=== PATIENT | female | born 1960 | race Caucasian/White ===

== ENCOUNTER → 2017-11-05 11:33 | Outpatient (CLI) | payer BC, SELFPAY ==
--- NOTE | 2017-11-05 11:55 | EKG12_ITS ---
Test Reason : PREOP Blood Pressure : / mmHG Vent. Rate : 057 BPM Atrial Rate : 057 BPM P-R Int : 164 ms QRS Dur : 088 ms QT Int : 432 ms P-R-T Axes : 039 -07 077 degrees QTc Int : 420 ms Sinus bradycardia with sinus arrhythmia Otherwise normal ECG Confirmed by GEOFF MARIE, TL ([id number]), content editor BIANCA PARRA ([id number]) on 11/07/2017 2:36:28 PM Referred By: Eric Bird Confirmed By:TL TELLEZ MD
[2017-11-05 12:10] LABS: Mean Corp Hgb Conc 32.6 g/gl (32-36); Mean Corpuscular Hgb 28.7 pg (27.0-32.0); Mean Corpuscular Volume 88.1 fL (81-99); Mean Platelet Vol. 9.2 fl (6.2-12.0); Platelet Count 254 K/mm3 (150-450); RBC Distribution Width CV 13.6 % (11.6-14.6); RBC Distribution Width SD 43.6 fl (35.1-43.9); Red Blood Count 4.88 M/mm3 (4.2-5.4); White Blood Count 9.7 K/mm3 (4.4-11.0)
[2017-11-05 12:11] LABS: Scan Indicated on CBC? Y/N NO
--- NOTE | 2017-11-05 12:25 | RAD_ITS ---
STUDY: X-RAY CHEST REASON FOR EXAM: Female, 56 years old. Preop shoulder surgery, no chest complaint. TECHNIQUE: PA and lateral views of the chest. COMPARISON: None. FINDINGS: No scarring or atelectasis in the lung bases. Hyperinflation of upper lung parenchyma. There is no demonstrated pleural abnormality. Normal size heart. Normal mediastinum and argelia. Normal visualized pulmonary arteries. Normal visualized aortic arch and descending thoracic aorta. There are diffuse degenerative changes of the visualized thoracic spine. There is degenerative osteoarthritis of the bilateral shoulders. There is no demonstrated abnormality of the visualized soft tissue structures of the upper abdomen. RAD/Chest PA and Lateral IMPRESSION: Component of COPD with scarring/atelectasis in the bases suspected. Degenerative changes. No pulmonary edema, congestive heart failure or confluent pneumonia. Electronically Signed: Debi Robledo MD at 4:02 EDT , Service support ,
[2017-11-05 12:35] LABS: Anion Gap 8 (5-15); BUN 11 mg/dL (7-18); BUN/Creat Ratio 12.1 RATIO (10-20); Calcium,Total 8.9 mg/dL (8.5-10.1); Chloride 107 mmol/L (98-107); Creatinine, Serum 0.91 mg/dL (0.55-1.02); EST Glomerular Filtration Rate 68 mL/min (>60); Est Glom Filt Rate - Afr Amer 82 mL/min (>60); Glucose 110 mg/dL (74-106); Sodium Level 143 mmol/L (136-145)
== END ==
PROVIDERS: Family Provider Family Medicine; PCP Family Medicine; Visit Provider Physician Assistant
DX: Z01.818 Encounter for other preprocedural examination (principal); F17.200 Nicotine dependence, unspecified, uncomplicated
CPT/HCPCS: 36415; 71046; 80048; 85027; 93005

== ENCOUNTER 2020-07-21 16:59 | Outpatient (RCR) | payer BC, SELFPAY ==
[2015-05-02 16:40] VITALS: BMI 33.3
[2020-07-21] MEDS: COVID-19 VACC, MRNA(PFIZER)/PF 30 MCG/0.3 ML SYRINGE IM (15:00)
[2020-08-11] MEDS: COVID-19 VACC, MRNA(PFIZER)/PF 30 MCG/0.3 ML SYRINGE IM (14:38)
== END 2020-07-21 23:59 ==
LOC: IMMUN 16:59
PROVIDERS: PCP Family Medicine; Visit Provider Family Medicine
DX: Z23 Encounter for immunization (principal)
CPT/HCPCS: 0001A; 0002A; 91300

== ENCOUNTER → 2020-09-21 13:17 | Outpatient (CLI) | payer BC, SELFPAY ==
--- NOTE | 2020-09-21 13:46 | EKG12_ITS ---
Test Reason : PRE-OP Blood Pressure : / mmHG Vent. Rate : 072 BPM Atrial Rate : 072 BPM P-R Int : 166 ms QRS Dur : 090 ms QT Int : 426 ms P-R-T Axes : 054 -31 077 degrees QTc Int : 466 ms Normal sinus rhythm Left axis deviation Low voltage QRS (Limb Leads) Poor R wave progression Abnormal ECG Confirmed by LEYDA MARIE, KEHINDE ([id number]), restaurant expeditor PEDRO VALENTINO ([id number]) on 09/23/2020 11:06:43 AM Referred By: Alexander Young Confirmed By:KEHINDE CRABTREE MD
[2020-09-21 14:06] LABS: Hematocrit 39.8 % (37-47); Hemoglobin 13.4 g/dL (12.0-15.0); Mean Corp Hgb Conc 33.7 g/dL (32-36); Mean Corpuscular Hgb 29.1 pg (27.0-32.0); Mean Corpuscular Volume 86.3 fL (81-99); Mean Platelet Vol. 9.4 fl (6.2-12.0); Platelet Count 268 K/mm3 (150-450); RBC Distribution Width SD 40.6 fl (35.1-43.9); Red Blood Count 4.61 M/mm3 (4.2-5.4); White Blood Count 5.5 K/mm3 (4.4-11.0)
[2020-09-21 14:32] LABS: Anion Gap 6 (5-15); BUN 15 mg/dL (7-18); Calcium,Total 8.8 mg/dL (8.5-10.1); Chloride 107 mmol/L (98-107); Creatinine, Serum 0.94 mg/dL (0.55-1.02); EST Glomerular Filtration Rate 65 mL/min (>60); Est Glom Filt Rate - Afr Amer 78 mL/min (>60); Glucose 205 mg/dL (74-106); Potassium 3.9 mmol/L (3.5-5.1); Sodium Level 140 mmol/L (136-145)
== END ==
PROVIDERS: PCP Family Medicine; Referring Provider Orthopaedic Surgery; Visit Provider Orthopaedic Surgery
DX: Z01.810 Encounter for preprocedural cardiovascular examination (principal); Z11.59 Encounter for screening for other viral diseases
CPT/HCPCS: 36415; 80048; 85027; 87635; 93005; C9803; U0002

== ENCOUNTER → 2020-11-15 15:45 | Outpatient (CLI) | payer BC, SELFPAY ==
--- NOTE | 2020-11-15 15:46 | CT_ITS ---
STUDY: LOW DOSE CT LUNG CANCER SCREENING REASON FOR EXAM: Female, 59 years old. TOBACCO USE. Former smoker. Patient smoked 1 pack per day for 41 years. RADIATION DOSAGE (If Supplied By Facility): CTDIvol = ( 3.18 ) mGy, DLP = ( 103.64 ) mGycm TECHNIQUE: No contrast was administered. Low dose technique was utilized (average mAS-38 and kVp 120). 1.25 mm axial source images with a slice interval of 1.25-mm were reconstructed in lung windows. 2.5 mm axial source images with a slice interval of 2.5-mm were reconstructed in lung windows. 5.0 mm axial source images with a slice interval of 5.0-mm were reconstructed in soft tissue windows. Nodule measured using lung windows on PACS and/or independent workstation with automated measurement of minimum and maximum diameter. Nodule measurement reported as average diameter rounded to the nearest whole number. Growth is defined as an increase ins size of greater than 1.5 mm. COMPARISON: None. NODULES: No suspicious nodules are seen. Emphysema: Mild emphysematous changes. Increased markings at the lung bases suggestive of mild scarring. Endobronchial lesion: None Aorta: Mild atherosclerotic plaque calcification. Coronary arteries: Coronary artery calcification. Mediastinal nodes: Small benign-appearing mediastinal lymph nodes. Other chest and abdominal findings: CT/Low Dose CT Lung Screening IMPRESSION: Lung-RADS category 2 - Continue annual screening with LDCT in 12 months. IMPORTANT NOTES FOR USE: ACR Lung-RADS Version 1.1 Assessment Categories Release Date: 2018 Category: Coded 0-4 bases on nodule(s) with highest degree of suspicion. Negative screen is defined as categories 1 and 2; a positive screen is defined as categories 3 and 4. Category 3 and 4A nodules that are unchanged on interval CT should be coded as category 2, and individuals returned to screening in 12 months. Category 4X: Category 3 or 4 nodules with additional imaging findings that increase the suspicion of lung cancer, such as spiculation, GGN that doubles in size in 1 year, enlarged lymph notes, etc. Category Modifiers: S (significant finding unrelated to lung cancer) Electronically Signed: Alec Pandey MD at 9:49 EDT , Service support ,
== END ==
PROVIDERS: PCP Family Medicine; Referring Provider Family Medicine; Visit Provider Family Medicine
DX: Z87.891 Personal history of nicotine dependence (principal)
CPT/HCPCS: 71271

== ENCOUNTER → 2021-10-05 | Outpatient (CLI) | payer BC, SELFPAY ==
--- NOTE | 2021-10-06 12:17 | STRESSREP ---
Stress Test Report Date: 10/05/2021 Procedure: Exercise tolerance test/imaging study Indications: Preop evaluation Consent: Per the patient Procedure: The patient exercised on a Neftali protocol for 8 minutes achieving a peak heart rate of 131 bpm (81% predicted maximal heart rate) with a peak blood pressure 170/72 mmHg and a peak MET capacity of 10.4 METs. The baseline ECG demonstrated normal sinus rhythm, poor R wave progression in the anterior leads. The peak exercise ECG demonstrated no significant ischemic changes. EKG during recovery revealed no significant ischemic changes [There were no cardiac dysrhythmias pretest, during exercise, or recovery]. The functional capacity was considered normal for age. There was [no complaint of chest discomfort during exercise or recovery]. Impression: 1. Stress test is[negative] for exercise-induced EKG changes of ischemia. Inability to reach 85% of maximal age-predicted heart rate decreases the sensitivity of the test to some extent 2. The test test is negative for exercise-induced chest pain 3. Functional capacity is normal for age 4. Nuclear images pending Myocardial perfusion imaging study: Technique: The patient was injected with 14.5 mCi of technetium 99m Cardiolite and subsequently rest SPECT Cardiolite nuclear imaging was obtained in the horizontal long, vertical long, and short axis views. The patient exercised on a Neftali protocol. Please see above for details. The patient was injected with 43.9 mCi of technetium 99m Cardiolite and subsequently stress SPECT Cardiolite nuclear imaging was obtained in the horizontal long, vertical long, and short axis views. A gated Cardiolite study at peak stress was obtained. Interpretation: Rest and stress SPECT Cardiolite nuclear imaging status post realignment, normalization, and attenuation correction, demonstrates overall normal myocardial radioisotope uptake. The gated Cardiolite study demonstrates no significant regional wall motion abnormalities. The reported LVEF is greater than 70%. Impression: 1. There is no evidence of significant ischemia or infarction. 2. The gated Cardiolite study reports an LVEF of greater than 70%. This note was generated with Plainlegalation software. It may contain incorrect words, spelling, and punctuation that were not noted in checking the note before signing.
== END | disposition home or self-care (01) ==
LOC: CVS 06:50
PROVIDERS: PCP Family Medicine; Referring Provider Family Medicine; Visit Provider Family Medicine
DX: Z01.818 Encounter for other preprocedural examination (principal); R94.31 Abnormal electrocardiogram [ECG] [EKG]; I49.1 Atrial premature depolarization
CPT/HCPCS: 78452; 93017; A9500; A4216; J2785

== ENCOUNTER → 2022-08-11 | Outpatient (CLI) | payer OTHER, SELFPAY ==
--- NOTE | 2022-08-11 08:00 | CT_ITS ---
STUDY: LOW DOSE CT LUNG CANCER SCREENING REASON FOR EXAM: Female, 61 years old. One pack per day smoker x20 years, quit 4 years ago history of right breast cancer RADIATION DOSAGE (If Supplied By Facility): CTDIvol = ( 3.02 ) mGy, DLP = ( 93.65 ) mGycm TECHNIQUE: No contrast was administered. Low dose technique was utilized (average mAS-38 and kVp 120). 1.25 mm axial source images with a slice interval of 1.25-mm were reconstructed in lung windows. 2.5 mm axial source images with a slice interval of 2.5-mm were reconstructed in lung windows. 5.0 mm axial source images with a slice interval of 5.0-mm were reconstructed in soft tissue windows. COMPARISON: 11/15/2020 FINDINGS: The lung windows show the lungs to be normally expanded. No organized infiltrate, effusion, or suspicious noncalcified mass or nodule. Fibrotic scarring noted in the lung bases. There is a subtle stable 3 mm nodular density along the right minor fissure on axial image 127. Soft tissue windows show normal-appearing thyroid gland. No suspicious axillary mediastinal or perihilar adenopathy. There are calcified coronary vessels without pericardial effusion. Limited cuts through the upper abdomen do not show any suspicious abnormality. Bony structures show degenerative change Overall, no significant interval change since the previous study CT/Low Dose CT Lung Screening IMPRESSION: Lung-RADS category 2 - Continue annual screening with LDCT in 12 months. IMPORTANT NOTES FOR USE: ACR Lung-RADS Version 1.1 Assessment Categories Release Date: 2018 Category: Coded 0-4 bases on nodule(s) with highest degree of suspicion. Negative screen is defined as categories 1 and 2; a positive screen is defined as categories 3 and 4. Category 3 and 4A nodules that are unchanged on interval CT should be coded as category 2, and individuals returned to screening in 12 months. Category 4X: Category 3 or 4 nodules with additional imaging findings that increase the suspicion of lung cancer, such as spiculation, GGN that doubles in size in 1 year, enlarged lymph notes, etc. Category Modifiers: S (significant finding unrelated to lung cancer) Electronically Signed: Arya Ro MD at 8:57 EDT ,
== END | disposition home or self-care (01) ==
PROVIDERS: PCP Family Medicine; Referring Provider Physician Assistant; Visit Provider Physician Assistant
DX: Z12.2 Encounter for screening for malignant neoplasm of respiratory organs (principal); Z87.891 Personal history of nicotine dependence
CPT/HCPCS: 71271

== ENCOUNTER → 2023-08-29 | Outpatient (CLI) | payer OTHER, SELFPAY ==
--- NOTE | 2023-08-29 13:15 | CT_ITS ---
STUDY: LOW DOSE CT LUNG CANCER SCREENING REASON FOR EXAM: Female, 62 years old. Z87.891 RADIATION DOSAGE (If Supplied By Facility): CTDIvol = ( 2.39 ) mGy, DLP = ( 132.49 ) mGycm TECHNIQUE: No contrast was administered. Low dose technique was utilized (average mAS-38 and kVp 120). 1.25 mm axial source images with a slice interval of 1.25-mm were reconstructed in lung windows. 2.5 mm axial source images with a slice interval of 2.5-mm were reconstructed in lung windows. 5.0 mm axial source images with a slice interval of 5.0-mm were reconstructed in soft tissue windows. COMPARISON: 08/11/2022 Emphysema: Mild emphysema. Right lower lobe linear scarring. No noncalcified nodule or mass. Endobronchial lesion: None Aorta: Some calcified plaque in the aortic arch but no thoracic aortic aneurysm. CORONARY ARTERIES: Coronary artery calcification is seen. Heart: No cardiomegaly. Pulmonary artery: Normal Mediastinal nodes: Normal Other chest and abdominal findings: None CT/Low Dose CT Lung Screening IMPRESSION: Lung-RADS category 1 - Continue annual screening with LDCT in 12 months. IMPORTANT NOTES FOR USE: ACR Lung-RADS Version 1.1 Assessment Categories Release Date: 2018 Category: Coded 0-4 bases on nodule(s) with highest degree of suspicion. Negative screen is defined as categories 1 and 2; a positive screen is defined as categories 3 and 4. Category 3 and 4A nodules that are unchanged on interval CT should be coded as category 2, and individuals returned to screening in 12 months. Category 4X: Category 3 or 4 nodules with additional imaging findings that increase the suspicion of lung cancer, such as spiculation, GGN that doubles in size in 1 year, enlarged lymph notes, etc. Category Modifiers: S (significant finding unrelated to lung cancer) Electronically Signed: Alcides Barakat MD at 21:08 EDT ,
== END | disposition home or self-care (01) ==
LOC: CT 13:13
PROVIDERS: PCP Family Medicine; Referring Provider Family Medicine; Visit Provider Family Medicine
DX: Z12.2 Encounter for screening for malignant neoplasm of respiratory organs (principal); Z87.891 Personal history of nicotine dependence
CPT/HCPCS: 71271

== ENCOUNTER 2023-09-01 19:03 | Inpatient (IN) | payer OTHER, SELFPAY ==
[2023-09-01 19:04] VITALS: BP 139/75; PULSE 82; RESP 18; TEMP 36.7; O2SAT 96; BMI 33.7
--- NOTE | 2023-09-01 19:19 | EKG12_ITS ---
Test Reason : Blood Pressure : / mmHG Vent. Rate : 071 BPM Atrial Rate : 071 BPM P-R Int : 166 ms QRS Dur : 090 ms QT Int : 398 ms P-R-T Axes : 062 -34 073 degrees QTc Int : 432 ms Normal sinus rhythm Left axis deviation Abnormal ECG Confirmed by GEOFF MARIE, TL ([id number]), writer editor KOTA ONEAL ([id number]) on 09/02/2023 9:45:59 AM Referred By: Confirmed By:TL TELLEZ MD
--- NOTE | 2023-09-01 19:20 | EX.ED.DYSGE1 ---
HPI History of Present Illness Chief Complaint: Cellulitis Detail of Chief Complaint: Cellulitis right breast Informant: patient and spouse/S.O. Onset/Context/Timing Onset: Yesterday Context: Sudden Onset Timing: Continuous Quality: Pain and redness right breast Location: Right breast Current Severity: Moderate Maximum Severity: Moderate Worsened by: Patient did have a monilial infection that she treated with nystatin powder Relieved by: Nothing Associated Symptoms Associated Symptoms: None Narrative Narrative: Patient is a 62-year-old woman with prior history of right breast cancer who was seen at urgent care and diagnosed with cellulitis of the breast. She was placed on cephalexin. The area was not demarcated. Both the patient and states the redness has gotten worse and now encompasses the entire right breast. She denies history rheumatic fever, heart murmur mitral valve prolapse. She is not immune suppressed. She does have history of diabetes. Her last A1c level was 6.3. She is present on no medication. She has a remote history of DVT postsurgery and was on Xarelto. She is no longer on Xarelto. Patient denies cardiac or respiratory symptoms. Patient denies GI symptoms. Patient denies urologic symptoms. Prior similar symptoms: No Recent Illness/Hospitalization: Yes [facility] Medical History (Updated 09/01/23 @ 19:[address] Jonas Mayorga MD) Breast cancer Melanoma Home Medications acetaminophen 500 mg tablet 500 mg PO Q8H PRN PRN pain 09/01/23 [History Last Taken Unknown] anastrozole 1 mg tablet 1 mg PO DAILY 09/01/23 [History Last Taken Unknown] atorvastatin 20 mg tablet 20 mg PO QHS cholesterol 09/01/23 [History Last Taken Unknown] cephalexin 500 mg capsule 500 mg PO 4X/DAY 09/01/23 [History Last Taken Unknown] cyclobenzaprine 10 mg tablet 10 mg PO TID PRN muscle spasm 09/01/23 [History Last Taken Unknown] doxycycline hyclate 20 mg tablet 20 mg PO BID 09/01/23 [History Last Taken Unknown] fluticasone furoate 27.5 mcg/actuation nasal spray,suspension (Flonase Sensimist) 2 spray intranasal DAILY PRN allergy symptoms 09/01/23 [History Last Taken Unknown] glucosamine sulfate 500 mg tablet 1,000 mg PO DAILY 09/01/23 [History Last Taken Unknown] levothyroxine 50 mcg tablet 50 mcg PO DAILY 09/01/23 [History Last Taken Unknown] melatonin 10 mg tablet 10 mg PO QHS 09/01/23 [History Last Taken Unknown] Allergy/AdvReac Type Severity Reaction Status Date / Time codeine Allergy Hives Verified 09/01/23 19:07 simvastatin AdvReac Intermediate abnormal Verified 09/01/23 19:07 labs Social History (Updated 09/01/23 @ 19:[address] Jonas Mayorga MD) household members: spouse Smoking Status: Current every day smoker tobacco type: cigarettes substance use type: marijuana ROS ROS ED Constitutional Constitutional ED: Denies chills, fever(s), subjective or sweats Eyes Eyes: Denies blurry vision or change in vision ENT ENT ED: Denies rhinorrhea or sore throat Cardiovascular Cardiovascular: Denies chest pain or palpitations Respiratory/Chest Respiratory/Chest: Denies cough, dyspnea or dyspnea on exertion Gastrointestinal Gastrointestinal: Denies abdominal pain, nausea or vomiting Musculoskeletal Musculoskeletal: Denies arthralgias or myalgias Integumentary Reports rash Hematologic/Lymphatic Hematologic/Lymphatic: Reports systems reviewed and no addt'l complaints, except as documented EXAM Physical Exam Const Vital Signs: 09/01/23 19:04 09/01/23 19:30 Temperature 98.0 F Temperature Source Temporal Pulse Rate 82 Respiratory Rate 18 Blood Pressure 139/75 H Blood Pressure Mean 96 Pulse Ox 96 Oxygen Delivery Method Room Air Room Air Positive well nourished, well developed and obese General Appearance ED: well developed and NAD Nutritional Appearance: obese HEENT Reports moist mucous membranes HEENT Narrative: Head is atraumatic normocephalic. Ears normal. Nares patent. Eyes PERRL and EOMs intact bilaterally General Eye ED: Negative for pale conjunctiva or scleral icterus Chest Wall palpation of chest normal; Negative for inspection of chest normal Chest Narrative: The entire right breast is cellulitic. There is no dimpling of the breast. There is no palpable mass of the breast. There is fullness in the right axillary region compared to the left side. There is no obvious palpable enlarged nodes. There is no lymphangitis. There is no drainage from the nipple. Nurse was in the room during breast examination. Resp normal respiratory effort and clear to auscultation bilaterally Cardio regular rate, regular rhythm, S1 normal heart sound, S2 normal heart sound and no murmurs GI normal to inspection, nondistended, normoactive bowel sounds, non-tender and non-distended; Negative for hepatosplenomegaly Extremity normal to inspection Extremity Narrative: Distal pulses noted upper and lower extremity. Patient does have hair on her toes. General Extremety ED: Negative for edema or tenderness General Extremity: Negative for edema Neuro oriented x3, CN's II-XII intact bilaterally and no sensory deficits noted Sensorium / Orientation: alert Psych mental status grossly normal Skin Skin Narrative: Cellulitis right breast. The breast is red, warm and there is induration. There is no fluctuance. MDM MDM MDM Narrative Medical decision making narrative: Sepsis order set was initiated. Patient will require admission. She she and her were told this. Patient was started on Unasyn. History & Record Review Additional record(s) reviewed:: Prior ED visit (DVT 2014), Prior labs and Other (Records for urgent care visit to [facility] not available on [facility] at this time.) Lab Data Attestation: I reviewed the patient's lab results. Lab results narrative: CBC is normal. Lactate is normal. There is no evidence of endorgan dysfunction. Labs: Laboratory Results - last 24 hr 09/01/23 19:22 WBC 8.8 RBC 4.61 Hgb 12.8 Hct 39.8 MCV 86.3 MCH 27.8 MCHC 32.2 RDW Std Deviation 41.5 RDW Coeff of Herberth 13.3 Plt Count 235 MPV 9.0 Immature Gran % (Auto) 0.200 Neut % (Auto) 69.1 Lymph % (Auto) 22.6 Bracken % (Auto) 7.2 Eos % (Auto) 0.6 Baso % (Auto) 0.3 Absolute Neuts (auto) 6.1 Absolute Lymphs (auto) 1.99 Nucleated RBC % 0 PT 12.7 INR 1.0 APTT 27.2 Sodium 138 Potassium 3.7 Chloride 106 Carbon Dioxide 27.0 Anion Gap 5 BUN 13 Creatinine 1.03 H Estim Creat Clear Calc 63.51 Est GFR (MDRD) Af Amer 70 Est GFR (MDRD) Non-Af 58 L BUN/Creatinine Ratio 12.6 Glucose 157 H Lactic Acid 1.2 Calcium 9.1 Total Bilirubin 0.70 AST 15 ALT 23 Alkaline Phosphatase 56 Total Protein 7.2 Albumin 3.8 Globulin 3.4 Albumin/Globulin Ratio 1.1 EKG Initial EKG: Attestation: I personally reviewed and interpreted this EKG as follows: Interpretation: Sinus Rhythm (Rate is 71. Conroy to left. CA interval is 166 ms. QRS duration 90 ms. QT duration 298 ms. There is no ischemic changes.) Management Discussion w/another healthcare provider: Hospitalist (Spoke with Dr. Larson. Patient full admit to [facility]. Discussed need for advanced imaging. My opinion was that it does not need to be done at this time since her presentation and findings are consistent with cellulitis and not inflammatory breast cancer.) Discharge Plan Dx/Rx/DC Orders Clinical Impression: Failure of outpatient treatment, History of right breast cancer, Cellulitis of right breast, History of diabetes mellitus Disposition Disposition: Acute Care Hospital [facility]
[2023-09-01 19:33] LABS: Absolute Lymphocyte Count 1.99 X10^3/uL (0.83-4.51); Absolute Neutrophil Count 6.1 X10^3/uL (2.0-7.7); Basophil# 0.03 X10^3/uL; Basophil% 0.3 % (0-1); Eosinophil# 0.05 X10^3/uL; Eosinophils% 0.6 % (0-5); Hematocrit 39.8 % (37-47); Hemoglobin 12.8 g/dL (12.0-15.0); Lymphocyte # 1.99 X10^3/ul (0.83-4.51); Lymphocyte % 22.6 % (19-41); Mean Corp Hgb Conc 32.2 g/dL (32-36); Mean Corpuscular Hgb 27.8 pg (27.0-32.0); Mean Corpuscular Volume 86.3 fL (81-99); Monocyte# 0.63 X10^3/uL; Monocyte% 7.2 % (0-10); NRBC Flagged by Analyzer 0 % (0-5); Neutrophil # 6.08 X10^3/uL (2.7-7.7); Neutrophil % 69.1 % (47-70); Platelet Count 235 K/mm3 (150-450); RBC Distribution Width CV 13.3 % (11.6-14.6); RBC Distribution Width SD 41.5 fl (35.1-43.9); Red Blood Count 4.61 M/mm3 (4.2-5.4); White Blood Count 8.8 K/mm3 (4.4-11.0)
[2023-09-01] MEDS: Ampicillin/Sulbactam 3 GM in 0.9% Normal Saline (100mL MB+) 100 ML IV (19:44)
[2023-09-01 19:46] LABS: Prothrombin Time (Protime)PT. 12.7 SECONDS (11.7-14.9)
[2023-09-01 19:48] LABS: Partial Thromboplast Time 27.2 Seconds (24.1-36.2)
[2023-09-01 19:51] LABS: ALB/GLOB Ratio 1.1 RATIO (0.9-2.4); AST(SGOT) 15 U/L (15-37); Alanine Aminotransfer ALT/SGPT 23 U/L (13-56); Albumin, Serum 3.8 g/dL (3.2-5.0); Alkaline Phosphatase 56 U/L (45-117); Anion Gap 5 (5-15); BUN 13 mg/dL (7-18); BUN/Creat Ratio 12.6 RATIO (10-20); Calcium,Total 9.1 mg/dL (8.5-10.1); Chloride 106 mmol/L (98-107); Creatinine, Serum 1.03 mg/dL (0.55-1.02); EST Glomerular Filtration Rate 58 mL/min (>60); Est Glom Filt Rate - Afr Amer 70 mL/min (>60); Estimated Creatinine Clearance 63.51 ml/min; Globulin 3.4 g/dL (2.2-4.2); Glucose 157 mg/dL (74-106); Potassium 3.7 mmol/L (3.5-5.1); Protein, Total 7.2 g/dL (6.4-8.2); Sodium Level 138 mmol/L (136-145)
[2023-09-01 20:03] LABS: Lactic Acid 1.2 mmol/L (0.4-1.9)
--- NOTE | 2023-09-01 20:17 | HP.PCM.HOS_ITS ---
HPI - General General Date of Admission: 09/01/23 Date of Service: 09/01/23 Chief Complaint: Right breast erythema and tenderness HPI Narrative JAMES GANN, is a 62 F who presented to [facility] ED on 09/01/2023 with worsening right breast erythema and tenderness. Saw patient at the bedside in the ED. She was sitting up comfortably in bed, conversing normally, in no acute distress. She was afebrile and hemodynamically stable. On exam, her right breast was significantly erythematous throughout almost the whole breast with some tenderness to palpation. The area of redness was marked with a marker by ED staff. Patient states that she noticed some redness on the breast starting a few days ago. She has used nystatin powder for yeast infections around the breast in the past and she applied this at that time with no relief. Over the past day or 2 she noticed that the swelling has gotten significantly worse. She went to urgent care this morning and said that staff was borderline on sending her over to the ED given the extent of suspected cellulitis. They ultimately prescribed Keflex and sent her home but said it would be reasonable for her to go to the ED for further management, so she came in this evening. Patient's medical history is significant for right breast cancer that was diagnosed about 2 years ago. She is s/p lumpectomy and radiation therapy to the right breast. Follows with Dr. Tolliver with Oncology. Patient has not seen Dr. Tolliver for several months but states she had a mammogram done about 3 weeks ago that was clean. [facility]ed [facility] [place] records; unable to find last note from Dr. Tolliver but mammogram report from 08/14 said no mammographic evidence of malignancy. Plan is for repeat mammography again in 1 year. Patient's medical history otherwise is fairly benign. She does have history of diet-controlled diabetes, states her A1c values typically range from 6-7. No prior history of significant cellulitis like she presented with today. Patient afebrile and hemodynamically stable since arrival here. Labs with normal WBC count, CMP fairly benign, glucose mildly elevated at 157. CT chest with IV contrast showed known cellulitis of the right breast but no abscess. Given her significant right breast cellulitis, patient was admitted for further management. [facility] Medical History Breast cancer Melanoma Home Medications acetaminophen 500 mg tablet 500 mg PO Q8H PRN PRN pain 09/01/23 [History Last Taken Unknown] anastrozole 1 mg tablet 1 mg PO DAILY 09/01/23 [History Last Taken Unknown] atorvastatin 20 mg tablet 20 mg PO QHS cholesterol 09/01/23 [History Last Taken Unknown] cephalexin 500 mg capsule 500 mg PO 4X/DAY atb 09/01/23 [History Last Taken Unknown] cyclobenzaprine 10 mg tablet 10 mg PO TID PRN muscle spasm 09/01/23 [History Last Taken Unknown] doxycycline hyclate 20 mg tablet 20 mg PO BID preventive 09/01/23 [History Last Taken Unknown] fluticasone furoate 27.5 mcg/actuation nasal spray,suspension (Flonase Sensimist) 2 spray intranasal DAILY PRN allergy symptoms 09/01/23 [History Last Taken Unknown] glucosamine sulfate 500 mg tablet 1,000 mg PO DAILY 09/01/23 [History Last Taken Unknown] levothyroxine 50 mcg tablet 50 mcg PO DAILY thyroid 09/01/23 [History Last Taken Unknown] melatonin 10 mg tablet 10 mg PO QHS sleep 09/01/23 [History Last Taken Unknown] Allergy/AdvReac Type Severity Reaction Status Date / Time codeine Allergy Hives Verified 09/01/23 19:07 simvastatin AdvReac Intermediate abnormal Verified 09/01/23 19:07 labs Social History (Updated 09/01/23 @ 19:[address] Jonas Mayorga MD) household members: spouse Smoking Status: Former smoker substance use type: marijuana ROS Constitutional Constitutional: Denies chills, fatigue, fever(s) or weakness Cardiovascular Cardiovascular: Denies chest pain Respiratory/Chest Respiratory/Chest: Denies shortness of breath at rest Gastrointestinal Gastrointestinal: Denies abdominal pain, nausea or vomiting Integumentary Integumentary: Reports other Details: Significant right breast cellulitis noted. Vital Signs Vital Signs Vital Signs: 09/01/23 19:04 09/01/23 19:30 Temperature 98.0 F Temperature Source Temporal Pulse Rate 82 Respiratory Rate 18 Blood Pressure 139/75 H Blood Pressure Mean 96 Pulse Ox 96 Oxygen Delivery Method Room Air Room Air Weight Weight: 92.108 kg Body Mass Index (BMI) 33.7 Physical Exam Const alert, oriented x3 and no apparent distress Constitutional Narrative: Pleasant middle-aged female, obese, sitting up comfortably in bed, conversing normally, no acute distress. General Appearance: cooperative and comfortable HEENT normocephalic, head/scalp atraumatic, hearing grossly normal bilaterally, nasal mucous membranes and turbinates normal and moist oral mucous membranes Eyes PERRL, EOMs intact bilaterally and conjunctivae normal Neck full ROM Chest Chest Narrative: Significant right breast cellulitis with erythema throughout most of the breast. Mild tenderness to palpation throughout. No gross abnormalities of the nipple on visual exam. No noticeable skin tears present. Cellulitis confined to the breast. Resp normal respiratory effort, normal air movement, no use of accessory muscles and clear to auscultation bilaterally Cardio regular rate, regular rhythm, no murmurs and peripheral pulses 2+ throughout GI normal to inspection, nondistended, normoactive bowel sounds, soft to palpation, non-tender and non-distended Back/Spine normal ROM Extremity normal to inspection, full ROM and no pedal edema Neuro moves all extremities and no focal motor deficits Speech: speech normal Psych mental status grossly normal Results Lab / Micro Data 09/01/23 19:22 09/01/23 19:22 Labs: Laboratory Results - last 24 hr 09/01/23 19:22: WBC 8.8, RBC 4.61, Hgb 12.8, Hct 39.8, MCV 86.3, MCH 27.8, MCHC 32.2, RDW Std Deviation 41.5, RDW Coeff of Herberth 13.3, Plt Count 235, MPV 9.0, Immature Gran % (Auto) 0.200, Neut % (Auto) 69.1, Lymph % (Auto) 22.6, [place] % (Auto) 7.2, Eos % (Auto) 0.6, Baso % (Auto) 0.3, Absolute Neuts (auto) 6.1, Absolute Lymphs (auto) 1.99, Nucleated RBC % 0, PT 12.7, INR 1.0, APTT 27.2, Sodium 138, Potassium 3.7, Chloride 106, Carbon Dioxide 27.0, Anion Gap 5, BUN 13, Creatinine 1.03 H, Estim Creat Clear Calc 63.51, Est GFR (MDRD) Af Amer 70, Est GFR (MDRD) Non-Af 58 L, BUN/Creatinine Ratio 12.6, Glucose 157 H, Lactic Acid 1.2, Calcium 9.1, Total Bilirubin 0.70, AST 15, ALT 23, Alkaline Eliezer sphatase 56, Total Protein 7.2, Albumin 3.8, Globulin 3.4, Albumin/Globulin Ratio 1.1 Assessment & Plan Assessment/Plan (1) Cellulitis of right breast: PLAN: Plan Patient is a 62-year-old female who presented [facility] ED on 09/01/2023 with worsening right breast erythema and tenderness. 1. Right breast cellulitis ? Admit under inpatient status to [facility]. Given 1 dose of IV Unasyn in the ED. No overt risk factors for MRSA but given extent of cellulitis and rapid worsening per patient, will treat with IV vancomycin for now. Patient afebrile, hemodynamically stable, no fevers/chills, no leukocytosis so have no concern for sepsis at this point. Given some IV fluids after CT chest with IV contrast to help with eliminating contrast, otherwise no need for IV fluids, encouraged p.o. intake. Suspect patient will show good improvement on IV antibiotics and be ready for discharge home in the next few days. 2. History of right-sided breast cancer ? Diagnosed about 2 years ago, s/p lumpectomy and radiation therapy at that time. Follows with Dr. Tolliver. Was ER receptor positive, continue home anastrozole. Recent mammogram on 08/14 with no evidence of malignancy, recs to repeat mammogram again in 1 year. No inpatient oncology needs, continue outpatient follow-up. Chronic medical conditions: ? Obesity: BMI 33 on admit. Encouraged lifestyle modifications. Complicates hospital course, care and prognosis. ? Type 2 diabetes mellitus: Per patient, A1c values have ranged between 6 and 7 for the last few years. Has treated with lifestyle management, has not been on any diabetes medications to this point. Blood glucose mildly elevated at 157 on admit. A1c ordered. Will hold on sliding scale insulin with meals for now but can add if needed. ? Hyperlipidemia: Continue home statin. ? Hypothyroidism: Continue home Synthroid. ? Allergies: Continue home Flonase as needed. DVT prophylaxis: Lovenox CODE STATUS: Full code, verified Expected disposition: Home, 2 to 3 days Total clinical time spent by myself addressing the patient's medical issues, reviewing all the data, and collaborating with patient's care team: 55 minutes. Charges/Coding Visit Charges Inpatient E&M: 40337 Init Hosp L2
[2023-09-01 20:26] VITALS: BP 140/68; PULSE 78; RESP 19; TEMP 36.6; O2SAT 96
[2023-09-01 20:28] VITALS: BP 140/68; PULSE 79; RESP 19; TEMP 36.7; O2SAT 98
--- NOTE | 2023-09-01 20:28 | CT_ITS ---
INDICATION: R breast cellulit, h/o breast ca, eval for abscess EXAMINATION: CT CHEST WITH CONTRAST - CT Chest W/ Contrast Injection TECHNIQUE: Helically acquired images were obtained of the chest following IV contrast. A radiation dose optimization technique was used for this scan. IV Contrast dosage and agent: COMPARISON: 08/29/2023 FINDINGS: Interval development of skin thickening of the breast consistent with cellulitis. No loculated fluid collection just abscess. LUNGS, PLEURA AND LARGE AIRWAYS: Some bibasilar linear scarring. No noncalcified nodule or mass. No pleural effusion or thickening. No pneumothorax. THYROID: No thyroid lesions. HEART AND PERICARDIUM: Heart size is normal. No pericardial effusion. VESSELS: Thoracic aorta is not dilated. No aortic dissection. No obvious central pulmonary embolism although this study was not performed with the pulmonary embolism protocol. MEDIASTINUM AND PO: No mediastinal or hilar adenopathy. Esophagus is unremarkable. No hiatal hernia. UPPER ABDOMEN: No acute pathology. BONES: No suspicious lytic or blastic abnormality. CT/Chest WITH Contrast IMPRESSION: Known cellulitis the right breast but no abscess. Electronically Signed: Alcides Barakat MD at 22:01 EDT ,
[2023-09-01 20:30] VITALS: O2SAT 98
[2023-09-01 21:14] LABS: Hemoglobin A1c 5.6 % (3.8-5.6)
[2023-09-01 21:28] VITALS: BMI 33.3
[2023-09-01 21:34] VITALS: BP 136/86; PULSE 71; RESP 17; TEMP 36.6; O2SAT 97
[2023-09-01] MEDS: Vancomycin HCl 2,000 MG in 0.9% Normal Saline (500mL Bag) 500 ML 250 MG IV (21:42)
[2023-09-01] MEDS: Lactated Ringers 1,000 ML 150 ML IV (21:42)
[2023-09-01] MEDS: Atorvastatin Calcium 20 MG Tablet PO (21:42)
[2023-09-01] MEDS: Anastrozole 1 MG TABLET PO (21:44)
--- NOTE | 2023-09-01 21:57 | PCM.RX.CS ---
Consult Antibiotic Management Pharmacy has been consulted to manage selected antibiotic: Vancomycin Type of Intervention Type of Consult: New start Suspected Infection Suspected Infection: Skin/Soft tissue Labs Labs: Sodium 138 mmol/L (136-145) 09/01/23 19:22 Potassium 3.7 mmol/L (3.5-5.1) 09/01/23 19:22 Chloride 106 mmol/L (98-107) 09/01/23 19:22 Carbon Dioxide 27.0 mmol/L (21.0-32.0) 09/01/23 19:22 Anion Gap 5 (5-15) 09/01/23 19:22 BUN 13 mg/dL (7-18) 09/01/23 19:22 Creatinine 1.03 mg/dL (0.55-1.02) H 09/01/23 19:22 Est GFR (MDRD) Af Amer 70 mL/min (>60) 09/01/23 19:22 Est GFR (MDRD) Non-Af 58 mL/min (>60) L 09/01/23 19:22 BUN/Creatinine Ratio 12.6 RATIO (10-20) 09/01/23 19:22 Glucose 157 mg/dL (74-106) H 09/01/23 19:22 Dosing Weight Weight used for dosin.7 kg Estimated Creatinine Clearance Estimated Creatinine Clearance: 63.5 Goal Trough Goal Trough: 15-20 mcg/mL Pharmacy Plan for Drug Dosing Pharmacy Plan for Drug Dosing: Pharmacy Service will continue to monitor and adjust dosing as required. Follow-Up Labs Follow-Up Labs: Trough: Vancomycin Date/Time Labs Ordered Labs to be done on [date and time ordered]: 09/03/23 @0900
[2023-09-02] VITALS (7 sets, daily range): BP systolic 114–138; BP diastolic 58–91; PULSE 60–72; RESP 16–18; TEMP 36.6–37; O2SAT 96–98
[2023-09-02] MEDS: Levothyroxine 50 MCG Tablet PO (05:57)
[2023-09-02 06:22] LABS: Hemoglobin 12.1 g/dL (12.0-15.0); Mean Corp Hgb Conc 31.8 g/dL (32-36); Mean Corpuscular Hgb 27.7 pg (27.0-32.0); Platelet Count 207 K/mm3 (150-450); RBC Distribution Width CV 13.2 % (11.6-14.6); RBC Distribution Width SD 41.3 fl (35.1-43.9); Red Blood Count 4.37 M/mm3 (4.2-5.4); White Blood Count 6.1 K/mm3 (4.4-11.0)
[2023-09-02 06:45] LABS: Anion Gap 4 (5-15); BUN 10 mg/dL (7-18); BUN/Creat Ratio 12.7 RATIO (10-20); Calcium,Total 8.6 mg/dL (8.5-10.1); Chloride 110 mmol/L (98-107); Creatinine, Serum 0.79 mg/dL (0.55-1.02); EST Glomerular Filtration Rate 79 mL/min (>60); Est Glom Filt Rate - Afr Amer 95 mL/min (>60); Estimated Creatinine Clearance 82.15 ml/min; Glucose 106 mg/dL (74-106); Potassium 3.9 mmol/L (3.5-5.1); Sodium Level 138 mmol/L (136-145)
[2023-09-02] MEDS: Vancomycin IV 1,000 MG/200 ML BAG 200 MG IV ×2 (08:41→20:34)
[2023-09-02] MEDS: Enoxaparin 40 MG/0.4 ML Syringe SC (08:42)
--- NOTE | 2023-09-02 10:20 | CASEMGMT ---
ROSA PETIT Assessment: Face to Face with pt for initial transition planning/care coordination assessment. RN DAMASO introduced self and role at [facility], pt voices understanding and consents to assessment. Pt. standing, walking in room in no distress. in room, Pt stated ok to ask questions. Pt is A&O x4 and answers all questions appropriately at this time. Care providers, pharmacy, and demographics verified/updated. Admitting Dx: Right Breast Cellulitus PCP:[facility] Specialists: [facility], Eye; Masci, Oncology [facility]erred [facility] Insurance: [employer] Prescription Benefit: yes LNOK: Case Jimenez - Living Arrangements: Pt lives with , Daughter and Grandson. Lives in a ranch home with 2 steps and handrails. Pt states she is independent with ADLs and denies concerns in the home. Transportation: Pt drives self and denies concerns with transportation. Stated able to assist if needed. DME: Walker, cane, shower seat, Pt denies needing to check blood sugars. HHC/SNF: Denies Hx of. Pt states no concerns with going home at time of dc. Pt states no further concerns/needs. CM to follow. Advised pt to ask CM if any further question/concerns/needs arise, voices understanding. Pt Goal: Home no needs. Plan: Home no needs. Dominique LEE CM
--- NOTE | 2023-09-02 11:48 | PCM.PROGNOTE ---
Subjective Subjective Patient seen and examined. Her was by her bedside. She said she thinks the redness over her right breast is improving. She denies any fever or chills. Palpitations, dizziness, nausea or vomiting. She denies the breast being swollen and painful. Objective Data Objective Data Vital Signs: Vital Signs Temp Pulse Resp BP Pulse Ox O2 Del Method 98.6 F 62 16 128/91 H 98 Room Air 09/02/23 10:00 09/02/23 10:00 09/02/23 10:00 09/02/23 10:00 09/02/23 10:00 09/02/23 10:00 Oxygen Delivery Method Room Air Weight: 199 lb 15.348 oz Body Mass Index (BMI) 33.3 Intake & Output: Intake and Output for Last 24 Hours 08/31/23 09/01/23 09/02/23 23:59 23:59 23:59 Intake Total 654.5 / 654.5 997.5 / 997.5 Balance 654.5 / 654.5 997.5 / 997.5 Lab / Micro Data 09/02/23 06:11 09/02/23 06:11 Labs: Laboratory Results - last 24 hr 09/01/23 19:22: WBC 8.8, RBC 4.61, Hgb 12.8, Hct 39.8, MCV 86.3, MCH 27.8, MCHC 32.2, RDW Std Deviation 41.5, RDW Coeff of Herberth 13.3, Plt Count 235, MPV 9.0, Immature Gran % (Auto) 0.200, Neut % (Auto) 69.1, Lymph % (Auto) 22.6, [place] % (Auto) 7.2, Eos % (Auto) 0.6, Baso % (Auto) 0.3, Absolute Neuts (auto) 6.1, Absolute Lymphs (auto) 1.99, Nucleated RBC % 0, PT 12.7, INR 1.0, APTT 27.2, Sodium 138, Potassium 3.7, Chloride 106, Carbon Dioxide 27.0, Anion Gap 5, BUN 13, Creatinine 1.03 H, Estim Creat Clear Calc 63.51, Est GFR (MDRD) Af Amer 70, Est GFR (MDRD) Non-Af 58 L, BUN/Creatinine Ratio 12.6, Glucose 157 H, Hemoglobin A1c 5.6, Lactic Acid 1.2, Calcium 9.1, Total Bilirubin 0.70, AST 15, ALT 23, Alkaline Phosphatase 56, Total Protein 7.2, Albumin 3.8, Globulin 3.4, Albumin/Globulin Ratio 1.1 09/02/23 06:11: WBC 6.1, RBC 4.37, Hgb 12.1, Hct 38.0, MCV 87.0, MCH 27.7, MCHC 31.8 L, RDW Std Deviation 41.3, RDW Coeff of Herberth 13.2, Plt Count 207, MPV 9.0, Sodium 138, Potassium 3.9, Chloride 110 H, Carbon Dioxide 24.0, Anion Gap 4 L, BUN 10, Creatinine 0.79, Estim Creat Clear Calc 82.15, Est GFR (MDRD) Af Amer 95, Est GFR (MDRD) Non-Af 79, BUN/Creatinine Ratio 12.7, Glucose 106, Calcium 8.6 Radiography Diagnostic Testing: Radiology Impression Chest CT 09/01/23 20:28 IMPRESSION: Known cellulitis the right breast but no abscess. Electronically Signed: Alcides Barakat MD at 22:01 EDT , Physical Exam Const alert, oriented x3, no apparent distress and well nourished General Appearance: cooperative and well developed HEENT normocephalic, head/scalp atraumatic and moist oral mucous membranes Eyes PERRL and EOMs intact bilaterally Neck no lymphadenopathy, supple and no JVD Lymph Lymphatic: no lymphadenopathy noted Resp normal respiratory effort, normal air movement and clear to auscultation bilaterally Cardio regular rate, regular rhythm, S1 normal heart sound, S2 normal heart sound and no murmurs GI normal to inspection, nondistended, normoactive bowel sounds, soft to palpation and non-tender Extremity normal capillary refill, no clubbing, cyanosis or edema and no calf tenderness General Extremity: no tenderness to palpation of joints or extremities Skin Skin Narrative: skin over right breast is erythematous, mildly warm to touch, no swelling or visible p'eau d'orange Neuro CN's II-XII intact bilaterally, no focal motor deficits, no sensory deficits noted and deep tendon reflexes 2+ bilaterally Motor Exam: strength 5/5 throughout and general weakness Psych thought process normal, cooperative and affect normal Appearance: appropriate Assessment & Plan Assessment/Plan (1) Cellulitis of right breast: PLAN: Plan #RIght breast cellulitis Etiology is unclear. She denies any trauma scratches to the right breast. She says she did notice that she had some fungal like rash beneath her right breast and use nystatin powder for it. WBC is not elevated and is only around 6. Currently on IV vancomycin. Will continue IV antibiotics. There is currently low suspicion for inflammatory breast cancer in light of the node being in the portal manage, and process also notes swollen and tender. Will monitor closely. If her symptoms do not improve, will consider ID and oncology consult. On IV vancomycin #History of right breast cancer: S/p lumpectomy and radiation 2 years ago. Had a mammogram on 08/15/2023 which showed no evidence of malignancy. On anastrozole #Type 2 diabetes mellitus: Currently diet controlled. Will monitor closely for now. #Hyperlipidemia: On statin #Hypothyroidism: On Synthroid #DVT prophylaxis: Lovenox Charges/Coding Visit Charges Inpatient E&M: 04976 Subs Hosp L2
[2023-09-02] MEDS: Atorvastatin Calcium 20 MG Tablet PO (20:34)
[2023-09-02] MEDS: 0.9% Saline Lock 10 ML Syringe IV (20:34)
[2023-09-02] MEDS: Anastrozole 1 MG TABLET PO (20:34)
[2023-09-03 03:35] VITALS: BP 135/67; PULSE 66; RESP 16; TEMP 36.6; O2SAT 97
[2023-09-03 06:24] LABS: Absolute Lymphocyte Count 1.82 X10^3/uL (0.83-4.51); Absolute Neutrophil Count 3.3 X10^3/uL (2.0-7.7); Basophil# 0.04 X10^3/uL; Basophil% 0.7 % (0-1); Eosinophil# 0.23 X10^3/uL; Eosinophils% 3.9 % (0-5); Hematocrit 39.7 % (37-47); Hemoglobin 12.9 g/dL (12.0-15.0); Lymphocyte # 1.82 X10^3/ul (0.83-4.51); Lymphocyte % 30.7 % (19-41); Mean Corp Hgb Conc 32.5 g/dL (32-36); Mean Corpuscular Hgb 28.3 pg (27.0-32.0); Mean Corpuscular Volume 87.1 fL (81-99); Monocyte# 0.51 X10^3/uL; Monocyte% 8.6 % (0-10); NRBC Flagged by Analyzer 0 % (0-5); Neutrophil # 3.29 X10^3/uL (2.7-7.7); Neutrophil % 55.6 % (47-70); Platelet Count 234 K/mm3 (150-450); RBC Distribution Width CV 12.9 % (11.6-14.6); RBC Distribution Width SD 40.9 fl (35.1-43.9); Red Blood Count 4.56 M/mm3 (4.2-5.4); White Blood Count 5.9 K/mm3 (4.4-11.0)
[2023-09-03] MEDS: Levothyroxine 50 MCG Tablet PO (06:28)
[2023-09-03 06:45] LABS: Anion Gap 6 (5-15); BUN 11 mg/dL (7-18); BUN/Creat Ratio 13.2 RATIO (10-20); Calcium,Total 8.9 mg/dL (8.5-10.1); Chloride 109 mmol/L (98-107); Creatinine, Serum 0.84 mg/dL (0.55-1.02); EST Glomerular Filtration Rate 73 mL/min (>60); Est Glom Filt Rate - Afr Amer 89 mL/min (>60); Estimated Creatinine Clearance 77.26 ml/min; Glucose 103 mg/dL (74-106); Potassium 4.3 mmol/L (3.5-5.1); Sodium Level 140 mmol/L (136-145)
[2023-09-03 07:34] VITALS: O2SAT 97
[2023-09-03 07:41] VITALS: BP 134/91; PULSE 62; RESP 16; TEMP 36.8; O2SAT 92
[2023-09-03 08:41] VITALS: BP 122/87; PULSE 69; RESP 16; TEMP 37.2; O2SAT 95
[2023-09-03] MEDS: Enoxaparin 40 MG/0.4 ML Syringe SC (09:36)
[2023-09-03] MEDS: Lisinopril 10 MG Tablet PO (09:39)
[2023-09-03 10:20] LABS: Vancomycin, Trough Level 9.8 ug/mL (5.0-15.0)
--- NOTE | 2023-09-03 10:34 | PCM.DC.SUM ---
Providers Date of Admission: 09/01/23 Date of Discharge: 09/03/23 Primary Care Physician: Dr. Ermias Hodges MD Reason For Visit: RIGHT BREAST CELLULITIS Diagnosis Discharge Diagnosis (1) Cellulitis of right breast: Status: Acute Code(s): N61.0 - Mastitis without abscess Plan #RIght breast cellulitis Etiology is unclear. She denies any trauma scratches to the right breast. She says she did notice that she had some fungal like rash beneath her right breast and use nystatin powder for it. WBC is not elevated and is only around 6. Currently on IV vancomycin. Will continue IV antibiotics. There is currently low suspicion for inflammatory breast cancer in light of the node being in the portal manage, and process also notes swollen and tender. Will monitor closely. If her symptoms do not improve, will consider ID and oncology consult. On IV vancomycin #History of right breast cancer: S/p lumpectomy and radiation 2 years ago. Had a mammogram on 08/15/2023 which showed no evidence of malignancy. On anastrozole #Type 2 diabetes mellitus: Currently diet controlled. Will monitor closely for now. #Hyperlipidemia: On statin #Hypothyroidism: On Synthroid #DVT prophylaxis: Lovenox Medications at Discharge Home Medications acetaminophen 500 mg tablet 500 mg PO Q8H PRN PRN pain 09/01/23 anastrozole 1 mg tablet 1 mg PO DAILY 09/01/23 atorvastatin 20 mg tablet 20 mg PO QHS cholesterol 09/01/23 cephalexin 500 mg capsule 500 mg PO 4X/DAY atb 09/01/23 cyclobenzaprine 10 mg tablet 10 mg PO TID PRN muscle spasm 09/01/23 doxycycline hyclate 20 mg tablet 20 mg PO BID preventive 09/01/23 fluticasone furoate 27.5 mcg/actuation nasal spray,suspension (Flonase Sensimist) 2 spray intranasal DAILY PRN allergy symptoms 09/01/23 glucosamine sulfate 500 mg tablet 1,000 mg PO DAILY 09/01/23 levothyroxine 50 mcg tablet 50 mcg PO DAILY thyroid 09/01/23 melatonin 10 mg tablet 10 mg PO QHS sleep 09/01/23 lisinopril 10 mg tablet 10 mg PO DAILY hypertension 09/02/23 cephalexin 500 mg capsule 500 mg PO Q8H #15 caps 09/03/23 Hospital Course Operations None Procedures None Summary of Care Provided Minutes Spent on Discharge: 48 Hospital Course: Patient is a 62-year-old female with a past medical history as outlined including breast cancer status postlumpectomy and radiation. She was admitted through the ED on 09/01/2023 with a complaint of right breast redness and tenderness.. She denied any fever or chills. She had noticed the redness starting a few days prior to admission. She had used nystatin powder for right breast yeast infection a few days prior to admission. However she is at this time and was not working. The swelling and redness got worse so she went to the urgent care and was sent to the ED due to concerns for cellulitis. White cell count was not elevated. She was admitted and managed for cellulitis of the right breast. She was started on IV vancomycin. Blood cultures were obtained and on day of discharge, the blood cultures were showing negative growth. The redness improved significantly and she felt much better. She was discharged on 09/03/2023 on p.o. Keflex for 5-day course. She is follow-up with her primary care doctor within 1 to 2 weeks. Patient seen and examined prior to discharge. She had no active complaints and had an uneventful night. Review of systems otherwise negative. Labs and vitals reviewed. Home medication reviewed and reconciled. Physical Exam Const alert, oriented x3, no apparent distress and well nourished General Appearance: cooperative, comfortable, well kempt and well developed HEENT normocephalic, head/scalp atraumatic, hearing grossly normal bilaterally, nasal mucous membranes and turbinates normal and moist oral mucous membranes Mouth: oral and palatal mucosa normal Eyes PERRL, EOMs intact bilaterally and conjunctivae normal Neck full ROM, no lymphadenopathy, supple and no JVD Lymph Lymphatic: no lymphadenopathy noted and no lymphedema noted Chest Chest Narrative: right breast erythema has improved markedly. NO tenderness or differential warmth Resp normal respiratory effort, normal air movement, no use of accessory muscles and clear to auscultation bilaterally Cardio regular rate, regular rhythm, S1 normal heart sound, S2 normal heart sound, no murmurs and peripheral pulses 2+ throughout GI normal to inspection, nondistended, normoactive bowel sounds, soft to palpation, non-tender and non-distended Back/Spine normal ROM Extremity normal to inspection, full ROM, normal capillary refill, no clubbing, cyanosis or edema, no calf tenderness and no pedal edema General Extremity: no tenderness to palpation of joints or extremities Skin Skin Narrative: right breast erythema has improved markedly Neuro oriented x3, CN's II-XII intact bilaterally, moves all extremities, no focal motor deficits, no sensory deficits noted and deep tendon reflexes 2+ bilaterally Speech: speech normal Motor Exam: strength 5/5 throughout and general weakness Psych mental status grossly normal, thought process normal, cooperative and affect normal Appearance: appropriate Weight / BMI Weight Weight: 199 lb 15.348 oz Body Mass Index (BMI) 33.3 ABG / Lab / Microbiology Data 09/03/23 05:59 09/03/23 05:59 Laboratory: Laboratory Results - last 24 hr 09/03/23 05:59: WBC 5.9, RBC 4.56, Hgb 12.9, Hct 39.7, MCV 87.1, MCH 28.3, MCHC 32.5, RDW Std Deviation 40.9, RDW Coeff of [place] 12.9, Plt Count 234, MPV 9.0, Immature Gran % (Auto) 0.500, Neut % (Auto) 55.6, Lymph % (Auto) 30.7, [place] % (Auto) 8.6, Eos % (Auto) 3.9, Baso % (Auto) 0.7, Absolute Neuts (auto) 3.3, Absolute Lymphs (auto) 1.82, Nucleated RBC % 0, Sodium 140, Potassium 4.3, Chloride 109 H, Carbon Dioxide 25.0, Anion Gap 6, BUN 11, Creatinine 0.84, Estim Creat Clear Calc 77.26, Est GFR (MDRD) Af Amer 89, Est GFR (MDRD) Non-Af 73, BUN/Creatinine Ratio 13.2, Glucose 103, Calcium 8.9 09/03/23 09:00: Vancomycin Trough 9.8 D/C Instructions Discharge Diet: Low fat / Low cholesterol Discharge Activity: Return to Normal Activity Weight Bearing Status: Weight bearing as tolerated Call your doctor if you observe: Fever of 101 or Higher, Shortness of breath, Dizziness, Swelling in the ankles and Chest pain Meaningful Use Info Meaningful Use Meaningful Use Diagnoses (Choose all that apply): None applicable Ischemic Stroke Statin Dosing Therapy Reference: STATIN DOSE THERAPY REFERENCE: * Patients > 75 years receive moderate or high dose statin therapy. * Patients 75 years or YOUNGER should receive HIGH intensity statin dose unless contraindicated. You will be required to document reason for non-treatment if statin daily dose does not meet guidelines. HIGH DOSE STATIN THERAPY DAILY Atorvastatin > than or = to 40 mg Rosuvastatin > than or = to 20 mg Amlodipine + Atorvastatin > than or = to 2.5/40 mg Ezetimibe + Simvastatin 10/80 mg Simvastatin 80mg Discharge Plan Admission Admit Date/Time: 09/01/23 20:21 Primary Reason for Your Visit: right breast cellulitis Attending Provider: Arielle Laers Primary Care Provider: Ermias Hodges Consulting Providers: Merrill Larson Instructions Patient Instructions: Cellulitis Dc Discharge Orders/Prescriptions Prescriptions: New cephalexin 500 mg capsule 500 mg PO Q8H Qty: 15 0RF Continued acetaminophen 500 mg tablet 500 mg PO Q8H PRN PRN (Reason: pain) anastrozole 1 mg tablet 1 mg PO DAILY atorvastatin 20 mg tablet 20 mg PO QHS cephalexin 500 mg capsule 500 mg PO 4X/DAY Flonase Sensimist 27.5 mcg/actuation spray,suspension 2 spray INTRANASAL DAILY PRN (Reason: allergy symptoms) levothyroxine 50 mcg tablet 50 mcg PO DAILY cyclobenzaprine 10 mg tablet 10 mg PO TID PRN (Reason: muscle spasm) melatonin 10 mg tablet 10 mg PO QHS glucosamine sulfate 500 mg tablet 1,000 mg PO DAILY Rx Instructions: administer with a meal lisinopril 10 mg tablet 10 mg PO DAILY Held doxycycline hyclate 20 mg tablet 20 mg PO BID Hold Instructions: Resume on 09/09/23. resume after completing course of PO keflex Referrals / Follow Up: Ermias Hodges MD [Primary Care Provider] - Within 1 Week Disposition Disposition (needs filled in before D/C Order can be placed): Home, Self Care Charges/Coding Visit Charges Inpatient E&M: 71572 Disch Hosp >30min
[2023-09-03] MEDS: 0.9% Saline Lock 10 ML Syringe IV (11:07)
--- NOTE | 2023-09-03 11:07 | PCM.RX.CS ---
Consult Antibiotic Management Pharmacy has been consulted to manage selected antibiotic: Vancomycin Type of Intervention Type of Consult: Follow-up Suspected Infection Suspected Infection: Skin/Soft tissue Prior Doses of Antibiotics Prior Doses of Antibiotics Received/Current Regimen: current dose is vanc 1000mg IV q12h Labs Labs: Sodium 140 mmol/L (136-145) 09/03/23 05:59 Potassium 4.3 mmol/L (3.5-5.1) 09/03/23 05:59 Chloride 109 mmol/L (98-107) H 09/03/23 05:59 Carbon Dioxide 25.0 mmol/L (21.0-32.0) 09/03/23 05:59 Anion Gap 6 (5-15) 09/03/23 05:59 BUN 11 mg/dL (7-18) 09/03/23 05:59 Creatinine 0.84 mg/dL (0.55-1.02) 09/03/23 05:59 Est GFR (MDRD) Af Amer 89 mL/min (>60) 09/03/23 05:59 Est GFR (MDRD) Non-Af 73 mL/min (>60) 09/03/23 05:59 BUN/Creatinine Ratio 13.2 RATIO (10-20) 09/03/23 05:59 Glucose 103 mg/dL (74-106) 09/03/23 05:59 Vancomycin Trough 9.8 ug/mL (5.0-15.0) 09/03/23 09:00 Dosing Weight Weight used for dosin.7 kg Estimated Creatinine Clearance Estimated Creatinine Clearance: 77 ml/min Goal Trough Goal Trough: 15-20 mcg/mL Pharmacy Plan for Drug Dosing Pharmacy Plan for Drug Dosing: The vanc trough drawn at 09:00 today (approx 12.5 hours after the previous dose) was 9.8. This is below goal so will increase to a newly calculated dose of 1500mg IV q12h. Will check a trough before the 4th dose. Pharmacy Service will continue to monitor and adjust dosing as required. Follow-Up Labs Follow-Up Labs: Trough: Vancomycin Date/Time Labs Ordered Labs to be done on [date and time ordered]: 09/04/23 22:30
[2023-09-03] MEDS: Vancomycin HCl 1,500 MG in 0.9% Normal Saline (500mL Bag) 500 ML 250 MG IV (11:08)
[2023-09-03 11:16] VITALS: BP 133/64; PULSE 66; RESP 16; TEMP 37.1; O2SAT 95
== END 2023-09-03 15:00 | disposition home or self-care (01) | DRG 601 ==
LOC: ED 19:30 → MS3 20:32
PROVIDERS: Admitting Provider Hospitalist; Emergency Provider Emergency Medicine; PCP Family Medicine; Visit Provider Student in an Organized Health Care Education/Training Program
DX: N61.0 Mastitis without abscess (principal); E03.9 Hypothyroidism, unspecified; E11.9 Type 2 diabetes mellitus without complications; E78.5 Hyperlipidemia, unspecified; F12.90 Cannabis use, unspecified, uncomplicated; E66.9 Obesity, unspecified; Z92.3 Personal history of irradiation; Z79.899 Other long term (current) drug therapy; Z87.891 Personal history of nicotine dependence; Z68.33 Body mass index [BMI] 33.0-33.9, adult; Z85.3 Personal history of malignant neoplasm of breast
CPT/HCPCS: 36415; 71260; 80048; 80053; 80202; 83036; 83605; 85025; 85027; 85610; 85730; 87040; 93005; 99285; J7040; J7050; J7120; Q9967; A4216; J0295

== ENCOUNTER → 2024-09-21 | Outpatient (CLI) | payer BC, SELFPAY ==
--- NOTE | 2024-09-21 13:40 | CT_ITS ---
PROCEDURE: LOW DOSE CT LUNG SCREENING 09/21/2024 REASON FOR EXAM: HX OF NICOTINE DEPENDENCE, ENCOUNTER FOR IMMUNIZATION TECHNIQUE: Low Dose CT Lung screening without contrast. Coronal and Sagittal reconstruction series were provided. One or more dose reduction techniques were used (e.g., Automated exposure control, adjustment of the mA and/or kV according to patient size, use of iterative reconstruction technique). REFERENCE LINK: Smartsheet Lung-RADS RADIATION DOSE SUMMARY: CTDlvol: 2.4 mGy DLP: 82 mGycm COMPARISON: CT chest on 09/01/2023 FINDINGS: Pulmonary Nodules: There is a 3 mm solid nodule in the right lower lobe (series 2 image 150), unchanged. Lymph Nodes:No significant lymphadenopathy Heart and Vasculature:Normal size heart. Mild multivessel coronary calcification. Mild aortic atherosclerosis. Lungs and Airways: Linear atelectasis or scarring at the lung bases. Pleura:No effusion. Upper Abdomen:Unremarkable. Bones:Degenerative changes of the thoracic spine. CT/Low Dose CT Lung Screening IMPRESSION: Lung-RADS Category: 2 BENIGN (BASED ON IMAGING FEATURES OR INDOLENT BEHAVIOR). RECOMMEND 12-MONTH SCREENING LDCT. Other Significant Findings: Mild multivessel coronary calcification.. Reading Location: [facility]
== END | disposition home or self-care (01) ==
PROVIDERS: PCP Family Medicine; Referring Provider Family Medicine; Visit Provider Family Medicine
DX: Z87.891 Personal history of nicotine dependence (principal)
CPT/HCPCS: 71271